=== PATIENT | female | born 1970 | race Caucasian/White ===

== ENCOUNTER 2019-11-23 11:50 | Outpatient (RCR) | payer OTHER, SELFPAY ==
--- NOTE | ~2019-11-23 | US_ITS ---
EXAMINATION: US OB <=14 wk fetus w TV DATE: 11/23/2019 12:57 INDICATION: Spotting. First trimester. TECHNIQUE: Real-time transabdominal and transvaginal pelvic ultrasound was performed. COMPARISON: None. FINDINGS: TRANSABDOMINAL ULTRASOUND: The uterus measures 11.3 x 6.6 x 5.4 cm. TRANSVAGINAL ULTRASOUND: There is a fluid collection with mean diameter of 1.1 cm in the endometrial complex. No yolk sac or pole is identified. The right ovary measures 2.8 x 1.8 x 2.0 cm. The le ft ovary measures 1.5 x 1.1 x 1.6 cm. There is no free fluid in the pelvis. IMPRESSION: 1. Fluid collection in the endometrial complex that may be a gestational sac with estimated date of delivery of 07/21/2020. Ectopic and spontaneous are not excluded. Serial beta-hCGs a re recommended. Reviewed, dictated and finalized at location A. IMPRESSION: 1. Fluid collection in the endometrial complex that may be a gestational sac w ith estimated date of delivery of 07/21/2020. Ectopic and spontaneous a bortion are not excluded. Serial beta-hCGs are recommended.
[2019-11-23 14:05] LABS: Basophils Percent Auto 0.5 % (0.2-1.2); Eosinophils Absolute Auto 0.2 K/mm3 (0-0.3); Eosinophils Percent Auto 3.4 % (0-4.4); Hematocrit 38.8 % (37.0-47.0); Hemoglobin 11.9 g/dL (12.0-15.0); Immature Granulocyte Absolute 0.01 K/mm3 (0.00-0.031); Immature Granulocyte Percent A 0.2 % (0-0.5); Lymphocytes Absolute Auto 1.28 K/mm3 (0.9-3.2); Lymphocytes Percent Auto 21.8 % (18.3-44.2); Mean Corpuscular HGB Conc 30.7 g/dl (32-36); Mean Corpuscular Volume 97.7 fl (80-100); Mean Platelet Volume 10.4 fl (7.4-10.4); Monocytes Absolute Auto 0.6 K/mm3 (0.1-0.6); Monocytes Percent Auto 10.2 % (2.6-8.5); Neutrophils Absolute Auto 3.8 K/mm3 (1.3-6.7); Neutrophils Percent Auto 63.9 % (45.5-73.1); Platelet Count Result 248 k/mm3 (150-375); Red Blood Count 3.97 M/mm3 (4.2-5.4); White Blood Count 5.9 K/mm3 (4.5-10.0)
[2019-11-23 15:36] LABS: Free T4 Free Thyroxine 0.64 ng/mL (0.78-2.19); Vitamin D 25 Hydroxy 45.9 ng/mL
== END 2020-02-21 23:59 | disposition home or self-care (01) ==
LOC: ANHIMG 11:50
PROVIDERS: Visit Provider Obstetrics & Gynecology Gynecology
DX: O26.851 Spotting complicating pregnancy, first trimester (principal); Z13.21 Encounter for screening for nutritional disorder; E06.3 Autoimmune thyroiditis; Z3A.01 Less than 8 weeks gestation of pregnancy
CPT/HCPCS: 36415; 76801; 76817; 82306; 84439; 84443; 84702; 85025; 85461